=== PATIENT | female | born 2000 | race African-American/Black ===

== ENCOUNTER 2021-08-18 10:33 | Emergency (ER) | payer BC, SELFPAY ==
[2021-08-18 10:53] VITALS: BP 148/98; PULSE 98; RESP 20; TEMP 36.4; O2SAT 100
--- NOTE | 2021-08-18 12:44 | ED.GENADULT ---
HPI - General Adult General Chief complaint: Extremity Problem,Nontraumatic Stated complaint: pain and swelling feet Time Seen by Provider: 08/18/21 11:41 Source: patient Mode of arrival: ambulatory Limitations: no limitations History of Present Illness HPI narrative: Patient presents for evaluation of a burning sensation in both feet for the last 2 weeks. She cannot remember any specific cause or injury. She does not have a history of similar symptoms. She states that she has sharp, shooting pain in all digits of both feet, most prominent in great toes. She has been applying a green alcohol to her feet. She states that she flexes the digits of both feet while in a bathtub which seems to alleviate her symptoms temporarily. She she relaxes the digits her symptoms return. She states she wears house shoes and denies wearing her sock more than one day at a time. Related Data Allergies Allergy/AdvReac Type Severity Reaction Status Date / Time No Known Allergies Allergy Verified 08/18/21 10:56 Review of Systems Review of Systems: CONSTITUTIONAL: Denies fever, chills, or sweats. EYES: Denies visual changes, redness, or discharge. ENT: Denies rhinorrhea, congestion, sore throat, or otalgia. CARDIOVASCULAR: Denies chest pain, palpitations, or edema. RESPIRATORY: Denies cough or dyspnea. GASTROINTESTINAL: Denies abdominal pain, nausea, vomiting, or diarrhea. GENITOURINARY: Denies dysuria or hematuria. SKIN: Denies rash or itching. MUSCULOSKELETAL: Reports burning sensation in both feet. Reports a sharp shooting pain in bilateral feet, most prominent in great toes. She denies back pain. NEUROLOGIC: Denies headache, numbness, dizziness, or weakness. PSYCHIATRIC: Denies anxiety or depression. [facility] Past Medical History Medical History No pertinent past medical history Surgical History Surgical History No pertinent past surgical history Family History Family History Mother No pertinent past medical history Social History Social History Alcohol intake: never Substance use: never Gender identity (if verbalized by the patient): Female Spiritual care concerns: No Exam Narrative: GENERAL: Well-appearing, well-nourished, and in no acute distress. HEAD: Normocephalic, atraumatic. EYES: PERRLA and EOMI. ENT: Nares clear, no rhinorrhea or epistaxis. Mucous membranes moist. Oropharynx without tonsillar hypertrophy exudate or other lesions. Bilateral TMs pearly rosas nonbulging NECK: Supple. No adenopathy or masses. No carotid bruits or JVD CHEST: Clear to auscultation. No respiratory distress. No wheezes rales or rhonchi HEART: Regular rate and rhythm. No murmur heard. Normal peripheral pulses. ABDOMEN: Soft, nontender, nondistended, normal active bowel sounds. EXTREMITIES:Hypersensitivity noted to bilateral great toes. Normal range of motion. No edema. SKIN: There is dried green drainage from topical product noted to all digits of bilateral feet. Skin is warm, dry, no rash. NEURO: No focal deficits. Alert and oriented x3. PSYCH: Normal mood and affect. Course Course Emergency Course: This is a 20-year-old female who presented with complaints of a burning sensation, as well as sharp shooting pain in both feet. On my initial exam there is dried green apical product noted to her feet. She provides me with somewhat of a vague history. One differential was tinea pedis. I asked patient if she notes sweating of her feet or if she wears her socks more than one day at a time, her visitor became offended and argumentative, asking why I would suggest that. I explained these were risk factors for tinea pedis and he said my questioning was insulting. When I asked for clarification of the gre
== END 2021-08-18 13:08 | disposition left against medical advice (07) ==
PROVIDERS: Emergency Provider Nurse Practitioner
DX: M79.672 Pain in left foot (principal); M79.671 Pain in right foot
CPT/HCPCS: 99282

== ENCOUNTER 2022-06-27 09:54 | Emergency (ER) | payer BC, SELFPAY ==
--- NOTE | ~2022-06-27 | XR_ITS ---
EXAMINATION: XR foot RT min 3V DATE: 06/27/2022 12:13 INDICATION: Burning right foot pain. TECHNIQUE: 4 views of right foot were obtained. COMPARISON: None. FINDINGS: Bone alignment is normal. No fracture. There is mild osteoarthritis of first metatarsophala ngeal joint. IMPRESSION: 1. Mild osteoarthritis of first metatarsophalangeal joint. Reviewed, dictated and finalized at location A.
--- NOTE | ~2022-06-27 | XR_ITS ---
EXAMINATION: XR foot LT min 3V DATE: 06/27/2022 12:13 INDICATION: Left foot burning pain. TECHNIQUE: 4 views of left foot were obtained. COMPARISON: None. FINDINGS: Bone alignment is normal. No fracture. Joint spaces are well maintained. IMPRESSION: 1. Normal left foot. Reviewed, dictated and finalized at location A. IMPRESSION: 1. Normal left foot.
[2022-06-27 10:22] VITALS: BP 130/79; PULSE 86; RESP 18; TEMP 36.3; O2SAT 100
--- NOTE | 2022-06-27 11:44 | ED.EXTPRO ---
HPI - Extremity Problem General Chief complaint: Extremity Problem,Nontraumatic Stated complaint: bilateral feet pain Time Seen by Provider: 06/27/22 11:30 History of Present Illness HPI Narrative: Patient is a 21-year-old female here for evaluation of atraumatic bilateral foot pain for the past several weeks. Patient states it is a sharp stabbing pain, unclear etiology. Patient had a similar type pain several years ago, resolved without intervention. Was seen at [facility] 1 week ago and was diagnosed with neuropathy, placed on Lyrica and ibuprofen but states this is not helping. Patient presents today due to continued pain. No numbness or tingling in the feet, fevers or chills, rashes, nausea or vomiting. Related Data Allergies Allergy/AdvReac Type Severity Reaction Status Date / Time No Known Allergies Allergy Verified 06/27/22 10:26 Review of Systems Review of Systems: Gen: Denies fevers or chills Eyes: Denies eye pain or visual change ENT: Denies congestion Respiratory: Denies shortness of breath or cough CV: Denies chest pain or palpitations GI: Denies abdominal pain nausea, emesis or diarrhea : denies burning, urgency, frequency or hematuria Musculoskeletal: Reports bilateral foot pain. Neuro: Denies numbness, tingling, weakness or focal weakness Skin: Denies rash Except as documented, all other systems reviewed and negative PMFSH Past Medical History Medical History No pertinent past medical history Surgical History Surgical History No pertinent past surgical history Family History Family History Mother No pertinent past medical history Social History Social History (Updated 08/18/21 @ 12:47 by DEEPAK Antonio, ) Alcohol intake: never Substance use: never Gender identity (if verbalized by the patient): Female Spiritual care concerns: No Exam Narrative: APPEARANCE: Well appearing, no pain in distress, well-nourished. Head: Normocephalic and atraumatic. EYES: PERRLA/EOMI, conjunctivae clear NOSE: No nasal drainage EARS: External ear normal in appearance THROAT: Oropharynx is clear. Mucous membranes are moist. NECK: Supple. No adenopathy, no masses. RESPIRATORY: Airway patent, respirations nonlabored. Clear to auscultation bilaterally, no rales, rhonchi, wheezing. CARDIOVASCULAR: Strong distal pulses. Regular rate and rhythm without murmurs, rubs, or gallops. ABDOMINAL: Normoactive bowel sounds. Soft, nontender, nondistended. No rebound tenderness or guarding. MUSCULOSKELETAL: Full range of motion bilateral feet. No obvious deformity. No bony tenderness to palpation of the foot. Feet are warm and well-perfused. No edema. NEURO: Normal speech. No focal neurologic deficits. SKIN: Skin is warm and dry. No rashes. PSYCHIATRIC: Normal affect/mood. Course Vital Signs Vital signs: Vital Signs Temperature 97.3 F L 06/27/22 10:22 Pulse Rate 86 06/27/22 10:22 Respiratory Rate 18 06/27/22 10:22 Blood Pressure 130/79 06/27/22 10:22 Pulse Oximetry 100 06/27/22 10:22 Temperature 97.3 F L 06/27/22 10:22 Pulse Rate 86 06/27/22 10:22 Respiratory Rate 18 06/27/22 10:22 Blood Pressure 130/79 06/27/22 10:22 Pulse Oximetry 100 06/27/22 10:22 MDM - Extremity (Nontraumatic) MDM Narrative Medical decision making narrative: 21-year-old female here for evaluation of acute on chronic bilateral foot pain for the past several weeks, first noticed several years ago. She is nontoxic-appearing and has normal vital signs. No gross deformity noted to feet, strong distal pulses palpated bilaterally. She has full range of motion in feet, no obvious swelling or redness; compartments are soft. X-rays with evidence of mild arthritis on the right foot but normal left foot ra
[2022-06-27] MEDS: HYDROcodone/acetaminophen (*CRX) 5-325 MG TABLET 1 TAB PO (11:50)
== END 2022-06-27 12:48 | disposition home or self-care (01) ==
PROVIDERS: Emergency Provider Emergency Medicine
DX: M19.071 Primary osteoarthritis, right ankle and foot (principal)
CPT/HCPCS: 73630; 99284; A9270